=== PATIENT | male | born 1995 | race Hispanic/Latino ===

== ENCOUNTER 2017-04-19 13:13 | Emergency (ER) | payer SELFPAY ==
[2017-04-19] MEDS ORDERED: MOTRIN PO ONE (14:57)
[2017-04-19] MEDS ORDERED: MORPHINE IV ONE (14:57)
[2017-04-19] MEDS ORDERED: NACL 0.9% 1000 ML 1,000 ML IV ONE (14:57)
[2017-04-19] MEDS ORDERED: ZOFRAN IV ONE (14:57)
--- NOTE | 2017-04-19 15:03 | Emergency Department Report ---
ED ENT HPI - General Chief complaint: Dental/Oral Stated complaint: TOOTHACHE Time Seen by Provider: 04/19/17 14:29 Source: patient Mode of arrival: Ambulatory Limitations: No Limitations - History of Present Illness Initial comments: PT c/o toothache x 2 days. PT states he noticed facial swelling yesterday. PT states his left ear hurts. PT states he can not eat or drink due to the pain. PT states he took a hydrocodone last night, but after he took it he was sweating and shaking. PT reports chills last night. PT states he can not open his mouth today. PT states his last dental appointment was 10 years ago. PT states he took OTC Tylenol today but no improvement MD complaint: tooth pain -: Gradual 1 - area of pain Severity: severe Severity scale (0 -10): 10 Quality: constant Consistency: constant Improves with: none Worsens with: swallowing, eating Context- Dental: poor dental care Associated Symptoms: fever, gum swelling, toothache, pain with swallowing. denies: discharge from ear - Related Data Previous Rx's Medication Instructions Recorded Last Taken Type Acetaminophen/Codeine [Tylenol #3] 1 tab PO Q6H PRN #12 tab 04/19/17 Unknown Rx Clindamycin [Clindamycin CAP] 300 mg PO Q8H #30 cap 04/19/17 Unknown Rx Ibuprofen [Motrin] 600 mg PO Q8H PRN #15 tablet 04/19/17 Unknown Rx Allergies Allergy/AdvReac Type Severity Reaction Status Date / Time No Known Allergies Allergy Verified 04/19/17 14:14 ED Dental HPI - General Chief complaint: Dental/Oral Stated complaint: TOOTHACHE Time Seen by Provider: 04/19/17 14:29 Source: patient Mode of arrival: Ambulatory Limitations: No Limitations - Related Data Previous Rx's Medication Instructions Recorded Last Taken Type Acetaminophen/Codeine [Tylenol #3] 1 tab PO Q6H PRN #12 tab 04/19/17 Unknown Rx Clindamycin [Clindamycin CAP] 300 mg PO Q8H #30 cap 04/19/17 Unknown Rx Ibuprofen [Motrin] 600 mg PO Q8H PRN #15 tablet 04/19/17 Unknown Rx Allergies Allergy/AdvReac Type Severity Reaction Status Date / Time No Known Allergies Allergy Verified 04/19/17 14:14 ED Review of Systems ROS: Stated complaint: TOOTHACHE Other details as noted in HPI Comment: All other systems reviewed and negative Constitutional: chills, fever, malaise ENT: throat pain (hurts to swallow ), dental pain Respiratory: denies: cough Gastrointestinal: other (decrease po intake due to pain ). denies: abdominal pain, nausea, vomiting Neurological: headache ED Past Medical Hx - Past Medical History Previous Medical History?: No - Surgical History Past Surgical History?: No - Social History Smoking Status: Never Smoker Substance Use Type: None - Medications Home Medications: Home Medications Medication Instructions Recorded Confirmed Last Taken Type Acetaminophen/Codeine [Tylenol #3] 1 tab PO Q6H PRN #12 tab 04/19/17 Unknown Rx Clindamycin [Clindamycin CAP] 300 mg PO Q8H #30 cap 04/19/17 Unknown Rx Ibuprofen [Motrin] 600 mg PO Q8H PRN #15 tablet 04/19/17 Unknown Rx ED Physical Exam - General Limitations: No Limitations General appearance: alert, in no apparent distress - Head Head exam: Present: atraumatic, normocephalic, normal inspection - Eye Eye exam: Present: normal appearance, PERRL, EOMI. Absent: conjunctival injection - ENT ENT exam: Present: mucous membranes moist, TM's normal bilaterally, normal external ear exam - Expanded ENT Exam Expanded Mouth exam: Present: trismus. Absent: drooling Teeth exam: Present: dental tenderness #, other (left lower gum erythematous with drainage and foul smell ). Absent: normal inspection (unable to fully examine due to pt's trismus ) - Neck Neck exam: Present: normal inspection, tenderness, full ROM, lymphadenopathy - Respiratory Respiratory exam: Present: normal lung sounds bilaterally. Absent: respiratory distress, chest wall tenderness, accessory muscle use - Cardiovascular Cardiovascular Exam: Present: regular rate, normal rhythm, normal heart sounds - GI/Abdominal GI/Abdominal exam: Present: soft. Absent: tenderness - Extremities Exam Extremities exam: Present: normal inspection, full ROM - Back Exam Back exam: Present: normal inspection, full ROM - Neurological Exam Neurological exam: Present: alert, oriented X3, normal gait - Psychiatric Psychiatric exam: Present: normal affect, normal mood - Skin Skin exam: Present: warm, dry, intact, normal color. Absent: rash ED Course Vital Signs 04/19/17 04/19/17 14:14 18:23 Temperature 99.9 F H 98.9 F Pulse Rate 91 H 65 Respiratory 18 16 Rate Blood Pressure 155/92 Blood Pressure 126/76 [Left] O2 Sat by Pulse 100 98 Oximetry - Reevaluation(s) Reevaluation #1: 04/19/17 15:03 PT aware of plan of care. Dr Lai aware of pt and agrees with plan of care. Reevaluation #2: 04/19/17 18:[address] results and plan of care. trace left sided facial edema noted at this time. Reevaluation #3: 04/19/17 19:26 PT given IV clindamycin and toradol. PT reports decrease in pain. PT able to open his mouth at this time. post oropharynx wnl. PT aware of dx and plan of care. PT given strict return precautions. PT has no questions at this time. - Pulse Oximetry Interpretation Digit-Finger Initial Pulse Oximetry Readin Actions Taken: none ED Medical Decision Making - Lab Data Result diagrams: 04/19/17 15:24 04/19/17 15:24 Lab Results 04/19/17 04/19/17 Range/Units 15:24 15:24 WBC 15.7 H (4.5-11.0) K/mm3 RBC 5.44 H (3.65-5.03) M/mm3 Hgb 15.8 H (11.8-15.2) gm/dl Hct 47.1 H (35.5-45.6) % MCV 87 (84-94) fl MCH 29 (28-32) pg MCHC 34 (32-34) % RDW 12.8 L (13.2-15.2) % Plt Count 196 (140-440) K/mm3 Lymph % (Auto) 13.0 L (13.4-35.0) % [place] % (Auto) 9.6 H (0.0-7.3) % Eos % (Auto) 0.0 (0.0-4.3) % Baso % (Auto) 0.3 (0.0-1.8) % Lymph # 2.0 (1.2-5.4) K/mm3 [place] # 1.5 H (0.0-0.8) K/mm3 Eos # 0.0 (0.0-0.4) K/mm3 Baso # 0.0 (0.0-0.1) K/mm3 Seg Neutrophils % 77.1 H (40.0-70.0) % Seg Neutrophils # 12.1 H (1.8-7.7) K/mm3 Sodium 140 (137-145) mmol/L Potassium 4.5 (3.6-5.0) mmol/L Chloride 98.9 (98-107) mmol/L Carbon Dioxide 28 (22-30) mmol/L Anion Gap 18 mmol/L BUN 7 L (9-20) mg/dL Creatinine 0.6 L (0.8-1.5) mg/dL Estimated GFR > 60 ml/min BUN/Creatinine Ratio 11.66 % Glucose 97 (75-100) mg/dL Calcium 9.9 (8.4-10.2) mg/dL - Radiology Data Radiology results: report reviewed CT soft tissue neck, no abscess subcutaneous edema - Differential Diagnosis lugwig's, dental abscess Critical Care Time: No Critical care attestation.: If time is entered above; I have spent that time in minutes in the direct care of this critically ill patient, excluding procedure time. ED Disposition Clinical Impression: Oral cellulitis, Pain, dental Leukocytosis Qualifiers: Leukocytosis type: unspecified Qualified Code(s): D72.829 - Elevated white blood cell count, unspecified Disposition: - TO HOME OR SELFCARE Is pt being admited?: No Does the pt Need Aspirin: No Condition: Stable Instructions: Dental Abscess (ED), Dental Caries (ED), Toothache (ED) Additional Instructions: Good oral hygiene Swish and spit warm salt water multiple times a day Take your antibiotics as prescribed take them with food No driving or alcohol after taking Tylenol #3 Follow up with a Dentist or oral surgeon in the next 3-5 days Return to the ED if you are unable to open your mouth, you are drooling, your swelling gets worse, or you are unable to swallow. Prescriptions: Acetaminophen/Codeine [Tylenol #3] 1 tab PO Q6H PRN #12 tab PRN Reason: Pain , Severe (7-10) Clindamycin [Clindamycin CAP] 300 mg PO Q8H #30 cap Ibuprofen [Motrin] 600 mg PO Q8H PRN #15 tablet PRN Reason: Pain Referrals: PRIMARY CAREMD [Primary Care Provider] - 3-5 Days NATASHA MCDANIELS MD, PHD [Staff Physician] - 3-5 Days [facility] [Outside] - 3-5 Days [facility] [Outside] - 3-5 Days [facility] [Outside] - 3-5 Days Forms: Work/School Release Form(ED) Time of Disposition: 19:35
[2017-04-19 15:41] LABS: Basophils % (Auto) 0.3 % (0.0-1.8); Hematocrit 47.1 % (35.5-45.6); Hemoglobin 15.8 gm/dl (11.8-15.2); Mean Corpuscular HGB Conc 34 % (32-34); Mean Corpuscular Hemoglobin 29 pg (28-32); Mean Corpuscular Volume 87 fl (84-94); Platelet Count 196 K/mm3 (140-440); Red Blood Count 5.44 M/mm3 (3.65-5.03); Red Cell Distribution Width 12.8 % (13.2-15.2); White Blood Count 15.7 K/mm3 (4.5-11.0)
[2017-04-19 15:52] LABS: Anion Gap 18 mmol/L; BUN/Creatinine Ratio 11.66; Blood Urea Nitrogen 7 mg/dL (9-20); Calcium 9.9 mg/dL (8.4-10.2); Carbon Dioxide 28 mmol/L (22-30); Chloride 98.9 mmol/L (98-107); Glucose 97 mg/dL (75-100); Potassium 4.5 mmol/L (3.6-5.0); Sodium 140 mmol/L (137-145)
[2017-04-19] MEDS ORDERED: NACL ONE (16:45)
--- NOTE | 2017-04-19 17:45 | Cat Scan Report ---
FINAL REPORT PROCEDURE: CT NECK W CON TECHNIQUE: Computerized axial tomography of the soft tissue neck was performed following the IV injection of iodinated nonionic contrast. HISTORY: toothache, fever, trismus COMPARISON: No prior studies are available for comparison. FINDINGS: No facial fractures are seen, no fractures of the mandible or maxilla are visualized. No gross abnormalities of the mandible or maxilla are seen on the left. I do not see significant dental disease although dental consultation would be more sensitive than CT scanning. There is subcutaneous edema prominent soft tissues to the left of the mandible and maxilla although I do not see a discrete fluid collection that would suggest an abscess. There is mild adenopathy visualized throughout the neck with lymph nodes measuring up to 1.7 x 1.0 centimeters inferior to the left side of the mandible and scattered lymph nodes seen in the remainder of the right and left side of the neck. The parotid glands and submandibular glands show no focal abnormalities. The base of the tongue and epiglottis as well as the larynx are unremarkable. Prevertebral soft tissues appear normal. Parapharyngeal spaces appear symmetric. Paranasal sinuses are clear. IMPRESSION: There is subcutaneous edema seen lateral to the left side of the mandible and maxilla. An abscess is not visualized. No gross abnormalities of the mandible or maxilla are visualized. Dental consultation is recommended. Mild adenopathy left side of the neck as described.
[2017-04-19] MEDS ORDERED: CLEOCIN 600 MG/50 mL 600 MG/50 ML BAG IV ONE (18:22)
[2017-04-19] MEDS ORDERED: TORADOL IV ONE (18:22)
[2017-04-19 18:26] VITALS: BP 126/76
[2017-04-19] MEDS ORDERED: NORCO 5/325 PO ONE (19:35)
== END 2017-04-19 20:45 | disposition home or self-care (01) ==
LOC: ED 13:13
DX: K12.2 Cellulitis and abscess of mouth (principal); K08.89 Other specified disorders of teeth and supporting structures; D72.829 Elevated white blood cell count, unspecified
CPT/HCPCS: 36415; 70491; 80048; 85025; 96361; 96365; 96375; 99284; J1885; J2270; J2405; J7030; Q9967